=== PATIENT | female | born 1970 | race Caucasian/White ===

== ENCOUNTER → 2016-09-10 | Outpatient (CLI) | payer OTHER ==
--- NOTE | 2016-09-10 15:13 | DX ---
Left ankle - 3 views Indication: Recent injury. Pain. Technique: AP, mortise, and lateral views. Comparison: None Findings: A 0.8 x 0.40 mm cortical chip fracture is distracted off the dorsal anterior process of the talus on the lateral view. Minimal overlying soft tissue swelling. The distal tibia and fibula are i ntact. Ankle mortise is well preserved. Impression: 1. Small cortical chip fracture off the dorsal aspect of the anterior talus. 2. Intact mortise.
== END ==
LOC: BMCIMAGING 13:57
PROVIDERS: ATTEND Internal Medicine
DX: S92.192A Other fracture of left talus, initial encounter for closed fracture (principal)

== ENCOUNTER → 2016-10-10 | Outpatient (CLI) | payer OTHER | LOC: BMCIMAGING 09:21 | PROVIDERS: ATTEND Podiatrist Foot & Ankle Surgery | DX: S92.155A Nondisplaced avulsion fracture (chip fracture) of left talus, initial encounter for closed fracture (principal) ==

== ENCOUNTER → 2017-02-24 | Outpatient (CLI) | payer OTHER | LOC: FIMAGING 13:06 | PROVIDERS: ATTEND Obstetrics & Gynecology | DX: N92.0 Excessive and frequent menstruation with regular cycle (principal) ==

== ENCOUNTER → 2017-02-25 | Outpatient (CLI) | payer OTHER | LOC: FIMAGING 09:10 | PROVIDERS: ATTEND Internal Medicine | DX: Z12.31 Encounter for screening mammogram for malignant neoplasm of breast (principal); Z85.3 Personal history of malignant neoplasm of breast | CPT/HCPCS: G0202 ==

== ENCOUNTER → 2017-07-17 | Outpatient (CLI) | payer OTHER | LOC: BMCIMAGING 08:45 | PROVIDERS: ATTEND Physician Assistant | DX: M79.642 Pain in left hand (principal) ==

== ENCOUNTER → 2017-09-15 | Outpatient (CLI) | payer OTHER | LOC: BMCIMAGING 14:41 | PROVIDERS: ATTEND Family Medicine | DX: S82.091A Other fracture of right patella, initial encounter for closed fracture (principal); M25.532 Pain in left wrist ==

== ENCOUNTER → 2017-10-01 | Outpatient (CLI) | payer OTHER | LOC: BMCIMAGING 09:14 | PROVIDERS: ATTEND Orthopaedic Surgery Hand Surgery | DX: S82.091D Other fracture of right patella, subsequent encounter for closed fracture with routine healing (principal); M25.532 Pain in left wrist ==

== ENCOUNTER → 2017-10-16 | Outpatient (CLI) | payer OTHER | LOC: BMCIMAGING 10:16 | PROVIDERS: ATTEND Physician Assistant | DX: S89.91XD Unspecified injury of right lower leg, subsequent encounter (principal) ==

== ENCOUNTER → 2018-02-26 | Outpatient (CLI) | payer OTHER | LOC: FIMAGING 09:09 | PROVIDERS: ATTEND Internal Medicine | DX: Z12.31 Encounter for screening mammogram for malignant neoplasm of breast (principal) ==

== ENCOUNTER 2018-05-29 17:57 | Inpatient (IN) | payer OTHER ==
[2018-05-29] MEDS ORDERED: NS 1,000 ML IV ONE (18:37)
[2018-05-29] MEDS ORDERED: KETOROLAC 15 MG/1 ML SDV IVP ONE (18:37)
[2018-05-29] MEDS ORDERED: DIAZEPAM 5 MG/ML 1 ML SYR IVP ONE (18:37)
[2018-05-29] MEDS ORDERED: HYDROmorphONE/DILAUDID 2 MG/ML INJ IVP ONE (19:51)
[2018-05-29] MEDS ORDERED: HYDROmorphONE/DILAUDID 1 MG/ML INJ ONE (20:00)
[2018-05-29] MEDS ORDERED: IOPAMIDOL (ISOVUE-300) 100 ML BTL ONE (21:33)
[2018-05-29] MEDS ORDERED: AMPICILLIN/SULBACTAM 3 GM in NS 100 ML IV ONE (22:14)
[2018-05-29] MEDS ORDERED: DEXAMETHASONE 10 MG/ML VIAL IVP ONE (22:28)
[2018-05-29] MEDS ORDERED: ACETAMINOPHEN 325 MG TAB PO PRN (22:28)
[2018-05-29] MEDS ORDERED: ONDANSETRON DISINTEGRATING 4 MG TAB PO PRN (22:28)
[2018-05-29] MEDS ORDERED: ONDANSETRON 4 MG/2 ML VIAL IVP PRN (22:28)
[2018-05-29 22:32] LABS: PLATELET COUNT 383 10^3/uL (150-400)
--- NOTE | 2018-05-29 22:49 | EDPHY ---
H & P Stated Complaint: Increasing neck pain and stiffness since last weekend. Also has sore throat Time Seen by Provider: 05/29/18 18:25 HPI/ROS: Chief complaint: Neck stiffness and pain History of present illness: This is a 48-year-old female who presents to the emergency department for neck stiffness and pain. She reports the onset of symptoms over the last day. She is unable to move her neck in any direction secondary to pain. She does report she has been sick with mild cold symptoms including runny nose, nasal congestion and sore throat for the last few days. She is not sure if this is related as this feels like a mild illness. She does report associated fullness in her throat, some difficulty swallowing and difficulty opening the mouth. She also feels her voice is somewhat hoarse. No fevers, no headache, no cough, no chest congestion, no rash. Review of systems: A 10 point review of systems was obtained and other than described above was negative - Personal History Current Tetanus Diphtheria and Acellular Pertussis (TDAP): No - Medical/Surgical History Hx Asthma: No Hx Chronic Respiratory Disease: No Hx Diabetes: No Hx Cardiac Disease: No Hx Renal Disease: No Hx Cirrhosis: No Hx Alcoholism: No Hx HIV/AIDS: No Hx Splenectomy or Spleen Trauma: No Other PMH: Br CA, appy. - Social History Smoking Status: Never smoked - Physical Exam Exam: General Appearance: Alert, appears uncomfortable. Eyes: Pupils equal and round no pallor or injection. ENT, Mouth: Tympanic membranes, external auditory canals, external ears and surrounding soft tissue including over the mastoids are unremarkable. Nasopharynx is not injected. There is no rhinorrhea. Oropharynx is injected. There is no edema. There is no exudate. There is no asymmetry. The uvula is midline. No elevation of the tongue. There is mild hoarseness and trismus, no stridor. Respiratory: There are no retractions, lungs are clear to auscultation. Cardiovascular: Regular rate and rhythm. Neurological: Alert and oriented x4. Strength and sensation intact and symmetrical. Skin: Warm and dry, no rashes. Musculoskeletal: Patient is unable to move her neck secondary to pain. There is no tenderness on palpation of the neck. Extremities are symmetrical, full range of motion. Psychiatric: Patient is oriented X 3, there is no agitation. Constitutional: Initial Vital Signs Temperature (C) 36.6 C 05/29/18 17:58 Heart Rate 92 05/29/18 17:58 Respiratory Rate 16 05/29/18 17:58 Blood Pressure 128/84 H 05/29/18 17:58 O2 Sat (%) 100 05/29/18 17:58 O2 Delivery Mode Room Air Allergies/Adverse Reactions: No Known Allergies Allergy (Unverified 11/15/14 14:36) Home Medications: Medication Instructions Recorded Herbals/Supplements -Info Only 1 ea PO DAILY 01/02/15 Multivitamins [Tab-A-Myla] 1 each PO DAILY 01/02/15 Ascorbic Acid [Vitamin C] 500 mg PO DAILY 01/05/15 Herbals/Supplements -Info Only 1 ea PO DAILY 01/05/15 Pantoprazole Sodium [Protonix 40mg 40 mg PO HS #30 tab 03/19/18 (*)] Sucralfate [Carafate 1 GM (*)] 1 gm PO ACHS #28 tab 03/19/18 Medical Decision Making - Diagnostics Imaging Results: Imaging Impressions Neck CT 05/29/18 21:23 Impression: Retropharyngeal fluid extending from the level of C2 to C6, possibly representing early retropharyngeal abscess. Findings and recommendations discussed with NESTOR Gallegos at 1003 hour, 2017. Imaging: Discussed imaging studies w/ chute greaser Radiologist ED Course/Re-evaluation: Patient is discussed with my secondary supervising physician Dr. Price Diaz. Patient presents to the emergency department with inability to move her neck, some difficulty swallowing and talking and a few days of cold symptoms. Ultimately she appears to have an early retropharyngeal abscess. I have consulted with ENT, Dr. Inez Flores. She would like patient started on Unasyn and given Decadron. Patient needs to be on continuous pulse oximetry and needs to sleep with the head of the bed elevated. She will see patient in the morning. I have consulted with Dr. Federico Diana. He will admit for further evaluation and care. The plan has been discussed with the patient voiced understanding and agreement with it. Differential Diagnosis: Included but not limited to muscle spasms, abscess formation, meningitis - Data Points Laboratory Results: Laboratory Results 05/29/18 22:26 05/29/18 05/29/18 22:26 21:31 WBC 11.29 10^3/uL H 10^3/uL (3.80-9.50) RBC 4.35 10^6/uL 10^6/uL (4.18-5.33) Hgb 13.5 g/dL g/dL (12.6-16.3) POC Hgb 12.2 gm/dL L gm/dL (12.6-16.3) Hct 41.5 % % (38.0-47.0) POC Hct 36 % L % (38-47) MCV 95.4 fL fL (81.5-99.8) MCH 31.0 pg pg (27.9-34.1) MCHC 32.5 g/dL g/dL (32.4-36.7) RDW 12.4 % % (11.5-15.2) Plt Count 383 10^3/uL 10^3/uL (150-400) MPV 10.5 fL fL (8.7-11.7) Neut % (Auto) 81.9 % H % (39.3-74.2) Lymph % (Auto) 9.7 % L % (15.0-45.0) Brooks % (Auto) 7.7 % % (4.5-13.0) Eos % (Auto) 0.1 % L % (0.6-7.6) Baso % (Auto) 0.2 % L % (0.3-1.7) Nucleat RBC Rel Count 0.0 % % (0.0-0.2) Absolute Neuts (auto) 9.25 10^3/uL H 10^3/uL (1.70-6.50) Absolute Lymphs (auto) 1.09 10^3/uL 10^3/uL (1.00-3.00) Absolute Monos (auto) 0.87 10^3/uL H 10^3/uL (0.30-0.80) Absolute Eos (auto) 0.01 10^3/uL L 10^3/uL (0.03-0.40) Absolute Basos (auto) 0.02 10^3/uL 10^3/uL (0.02-0.10) Absolute Nucleated RBC 0.00 10^3/uL 10^3/uL (0-0.01) Immature Gran % 0.4 % % (0.0-1.1) Immature Gran # 0.05 10^3/uL 10^3/uL (0.00-0.10) POC Sodium 141 mEq/L mEq/L (135-145) POC Potassium 3.8 mEq/L mEq/L (3.3-5.0) POC Chloride 110 mEq/L mEq/L (97-110) POC BUN 7 mg/dL mg/dL (7-23) POC Creatinine 0.6 mg/dL mg/dL (0.6-1.0) POC Glucose 88 mg/dL mg/dL (70-100) Medications Given: Discontinued Medications Diazepam (Valium) 5 mg IVP EDNOW ONE Stop: 05/29/18 18:38 Last Admin: 05/29/18 18:57 Dose: 5 mg Hydromorphone HCl (Dilaudid) 0.5 mg IVP EDNOW ONE Stop: 05/29/18 19:52 Last Admin: 05/29/18 20:07 Dose: 0.5 mg Sodium Chloride (Ns) 1,000 mls @ 0 mls/hr IV EDNOW ONE; Wide Open PRN Reason: Protocol Stop: 05/29/18 18:38 Last Admin: 05/29/18 18:56 Dose: 1,000 mls Ampicillin Sodium/Sulbactam (Sodium 3 gm/ Sodium Chloride) 100 mls @ 200 mls/ hr IV EDNOW ONE PRN Reason: Protocol Stop: 05/29/18 22:43 Last Admin: 05/29/18 22:40 Dose: 100 mls Ketorolac Tromethamine (Toradol) 15 mg IVP EDNOW ONE Stop: 05/29/18 18:38 Last Admin: 05/29/18 18:57 Dose: 15 mg Point of Care Test Results: Chemistry 05/29/18 21:31 POC Sodium 141 mEq/L mEq/L (135-145) POC Potassium 3.8 mEq/L mEq/L (3.3-5.0) POC Chloride 110 mEq/L mEq/L (97-110) POC BUN 7 mg/dL mg/dL (7-23) POC Creatinine 0.6 mg/dL mg/dL (0.6-1.0) POC Glucose 88 mg/dL mg/dL (70-100) ISTAT H&H 05/29/18 21:31 POC Hgb 12.2 gm/dL L gm/dL (12.6-16.3) POC Hct 36 % L % (38-47) Departure - Departure Disposition: [facility] Inpatient Acute Clinical Impression: Retropharyngeal abscess Condition: Fair
[2018-05-29] MEDS ORDERED: DEXAMETHASONE 4 MG/ML VIAL IVP ONE (23:00)
--- NOTE | 2018-05-29 23:57 | PDGENHP ---
History and Physical - Chief Complaint Neck pain, difficulty swallowing - History of Present Illness 48 yo F w/ hx of breast CA presents with neck pain. Patient tells me she strained her neck while gardening about 5 days ago. Shortly after, she began to notice throat pain. It is unclear if these issues are related. Over the following few days her throat pain progressed to the point where she could not eat or drink. At that point she came to the ED for evaluation. Of note, her daughter has had a sore throat recently as well. She denies fevers to me at this point. In the ED her evaluation is notable for neck fullness and pharyngeal erythema. CT reveals retropharyngeal fluid possibly consistent with early abscess. ENT was consulted in the ED. She is being admitted for observation and management of possible retropharyngeal infection. Case discussed with ED physician Dr. Price Diaz, records reviewed in EMR. History Information - Allergies/Home Medication List Allergies/Adverse Reactions: No Known Allergies Allergy (Unverified 11/15/14 14:36) Home Medications: Herbals/Supplements -Info Only 1 ea PO DAILY 01/02/15 [Last Taken Unknown] Multivitamins [Tab-A-Myla] 1 each PO DAILY 01/02/15 [Last Taken Unknown] Ascorbic Acid [Vitamin C] 500 mg PO DAILY 01/05/15 [Last Taken Unknown] Herbals/Supplements -Info Only 1 ea PO DAILY 01/05/15 [Last Taken Unknown] I have personally reviewed and updated: family history, medical history - Past Medical History cancer - Surgical History Reports: appendectomy, cancer surgery - Family History Positive for: hypertension - Social History Smoking Status: Never smoked Review of Systems Review of Systems: ROS: 10pt was reviewed & negative except for what was stated in HPI & below Physical Exam Physical Exam: Temp Pulse Resp BP Pulse Ox 36.6 C 74 16 130/76 H 95 05/29/18 17:58 05/29/18 22:43 05/29/18 22:43 05/29/18 22:43 05/29/18 22:43 Constitutional: appears nourished, uncomfortable Eyes: PERRL, EOMI Ears, Nose, Mouth, Throat: moist mucous membranes, other (Pharyngeal erythema) Cardiovascular: regular rate and rhythym, no murmur, rub, or gallop Respiratory: no respiratory distress, clear to auscultation Gastrointestinal: normoactive bowel sounds, soft, non-tender abdomen Skin: warm, normal color Musculoskeletal: full muscle strength, pain with ROM (Neck) Neurologic: AAOx3, CN II-XII Intact Psychiatric: interacting appropriately, not anxious Lab Data & Imaging Review 05/29/18 22: WBC 11.29 10^3/uL (3.80-9.50) H 05/29/18: RBC 4.35 10^6/uL (4.18-5.33) 05/29/18 22: Hgb 13.5 g/dL (12.6-16.3) 05/29/18: POC Hgb 12.2 gm/dL (12.6-16.3) L 05/29/18 21: Hct 41.5 % (38.0-47.0) 05/29/18: POC Hct 36 % (38-47) L 05/29/18: MCV 95.4 fL (81.5-99.8) 05/29/18: MCH 31.0 pg (27.9-34.1) 05/29/18: MCHC 32.5 g/dL (32.4-36.7) 05/29/18: RDW 12.4 % (11.5-15.2) 05/29/18: Plt Count 383 10^3/uL (150-400) 05/29/18: MPV 10.5 fL (8.7-11.7) 05/29/18: Neut % (Auto) 81.9 % (39.3-74.2) H 05/29/18: Lymph % (Auto) 9.7 % (15.0-45.0) L 05/29/18: [place] % (Auto) 7.7 % (4.5-13.0) 05/29/18: Eos % (Auto) 0.1 % (0.6-7.6) L 05/29/18: Baso % (Auto) 0.2 % (0.3-1.7) L 05/29/18: Nucleat RBC Rel Count 0.0 % (0.0-0.2) 05/29/18 22: Absolute Neuts (auto) 9.25 10^3/uL (1.70-6.50) H 05/29/18 22: Absolute Lymphs (auto) 1.09 10^3/uL (1.00-3.00) 05/29/18 22: Absolute Monos (auto) 0.87 10^3/uL (0.30-0.80) H 05/29/18 22: Absolute Eos (auto) 0.01 10^3/uL (0.03-0.40) L 05/29/18 22: Absolute Basos (auto) 0.02 10^3/uL (0.02-0.10) 05/29/18: Absolute Nucleated RBC 0.00 10^3/uL (0-0.01) 05/29/18 22: Immature Gran % 0.4 % (0.0-1.1) 05/29/18: Immature Gran # 0.05 10^3/uL (0.00-0.10) 05/29/18 22:26 POC Sodium 141 mEq/L (135-145) 05/29/18 21:31 POC Potassium 3.8 mEq/L (3.3-5.0) 05/29/18 21:31 POC Chloride 110 mEq/L (97-110) 05/29/18 21:31 POC BUN 7 mg/dL (7-23) 05/29/18 21:31 POC Creatinine 0.6 mg/dL (0.6-1.0) 05/29/18 21: POC Glucose 88 mg/dL (70-100) 05/29/18 21:31 Imaging Review: Imaging Impressions Neck CT 05/29/18 21:23 Impression: Retropharyngeal fluid extending from the level of C2 to C6, possibly representing early retropharyngeal abscess. Findings and recommendations discussed with NESTOR Gallegos at 1003 hour, 2017. Assessment & Plan Assessment: 48 yo F w/ hx of breast CA presents with neck pain and found to have possible retropharyngeal abscess on imaging. Plan: 1. Dysphagia, neck pain - With CT revealing retropharyngeal fluid extending from the level of C2 to C6, possibly representing early retropharyngeal abscess. Patient has had progressive symptoms for about 4 days and has difficulty tolerating PO. - Admit for observation - Continuous pulse ox, maintain HOB>30 degrees - mIVF, pain control - Unasyn IV - Blood cultures ordered - ENT consulted, will see patient in the morning 2. Hx breast cancer - Treated with surgery and radiation, not currently on therapy for this. Diet - NPO, mIVF Code - Full Ppx - SCDs Dispo - Admit under observation status
[2018-05-30 00:11] LABS: PLATELET COUNT 360 10^3/uL (150-400)
[2018-05-30] MEDS ORDERED: CHLORHEXIDINE GLUCONATE 15 ML UDL ONE (00:23)
--- NOTE | 2018-05-30 00:32 | PDANEPAE ---
ANE Past Medical History - Cardiovascular History Hx Hypertension: No Hx Arrhythmias: No Hx Chest Pain: No Hx Coronary Artery / Peripheral Vascular Disease: No Hx CHF / Valvular Disease: No Hx Palpitations: No - Pulmonary History Hx COPD: No Hx Asthma/Reactive Airway Disease: No Hx Recent Upper Respiratory Infection: No Hx Oxygen in Use at Home: No Hx Sleep Apnea: No - Neurologic History Hx Cerebrovascular Accident: No Hx Seizures: No Hx Dementia: No - Endocrine History Hx Diabetes: No Hypothyroid: No Hyperthyroid: No Obesity: no - Renal History Hx Renal Disorders: No - Liver History Hx Hepatic Disorders: No - Neurological & Psychiatric Hx Hx Neurological and Psychiatric Disorders: No - Cancer History Hx Cancer: No Cancer History Comment: BREAST CA - Congenital Disorder History Hx Congenital Disorders: No - GI History Hx Gastrointestinal Disorders: No - Other Health History Other Health History: NEG - Chronic Pain History Chronic Pain: No - Surgical History Prior Surgeries: KNEE L X3. APPENDECTOMY ANE Review of Systems Review of Systems: ANE Patient History - Allergies Allergies/Adverse Reactions: No Known Allergies Allergy (Unverified 11/15/14 14:36) - Home Medications Home Medications: Herbals/Supplements -Info Only 1 ea PO DAILY 01/02/15 [Last Taken Unknown] Multivitamins [Tab-A-Myla] 1 each PO DAILY 01/02/15 [Last Taken Unknown] Ascorbic Acid [Vitamin C] 500 mg PO DAILY 01/05/15 [Last Taken Unknown] Herbals/Supplements -Info Only 1 ea PO DAILY 01/05/15 [Last Taken Unknown] - NPO status NPO Since - Liquids (Date): 05/30/18 NPO Since - Liquids (Time): 22:00 NPO Since - Solids (Date): 05/30/18 NPO Since - Solids (Time): 15:00 - Smoking Hx Smoking Status: Never smoked - Family Anes Hx Family Hx Anesthesia Complications: NEG ANE Labs/Vital Signs - Labs Result Diagrams: 05/30/18 00:00 05/30/18 00:00 - Vital Signs Blood Pressure: 132/64 Heart Rate: 78 Respiratory Rate: 12 O2 Sat (%): 94 Height: 175.26 cm Weight: 60.328 kg ANE Physical Exam - Airway Neck exam: decreased ROM Mallampati Score: Class 1 Mouth exam: normal dental/mouth exam, small mouth opening - Pulmonary Pulmonary: no respiratory distress - Cardiovascular Cardiovascular: regular rate and rhythym - ASA Status ASA Status: III, E ANE Anesthesia Plan Anesthesia Plan: general endotracheal anesthesia
[2018-05-30] MEDS ORDERED: fentaNYL 100 MCG/2 ML INJ ONE ×2 (00:39→01:46)
[2018-05-30] MEDS ORDERED: PROPOFOL 200 MG/20 ML VIAL ONE (00:40)
[2018-05-30] MEDS ORDERED: MIDAZOLAM 2 MG/2 ML VIAL ONE (00:50)
[2018-05-30] MEDS ORDERED: SUGAMMADEX SODIUM 200 MG/2 ML VIAL IVP ONE (01:14)
[2018-05-30] MEDS ORDERED: ONDANSETRON 4 MG/2 ML VIAL ONE (01:14)
[2018-05-30] MEDS ORDERED: ROCURONIUM 100 MG/10 ML VIAL ONE (01:15)
--- NOTE | 2018-05-30 01:24 | POSTOPPROG ---
Post Op Note Date of Operation: 05/30/18 Surgeon: Inez Flores Anesthesia: GET(General Endotracheal) Pre-op Diagnosis: Retropharyngeal abscess Post-op Diagnosis: same Procedure: I&D RPA Findings: sig tissue edema and redeness of post OP wall, serous fluid Inf/Abcess present in the surg proc area at time of surgery?: Yes Depth: Deep Incisional (Fascial) EBL: Minimal Complications: none apparent Specimen(s): culture taken
--- NOTE | 2018-05-30 01:28 | SOAPPROG ---
SOAP Progress Note Assessment/Plan: Assessment: POD 0 I&D RPA, COntinue IV Unasyn, HOB elevated and NPO until recheck tomorrow to see if improving. Call with any questions or concerns. [phone] Plan: 05/30/18 01:27 Objective: Vital Signs Temp Pulse Resp BP Pulse Ox 36.8 C 78 12 132/64 H 94 05/30/18 00:35 05/30/18 00:35 05/30/18 00:35 05/30/18 00:35 05/30/18 00:35 Laboratory Results 05/30/18 00:00 05/30/18 00:00 05/28/18 05/29/18 05/30/18 05:59 05:59 05:59 Intake Total 1000 Balance 1000 ICD10 Worksheet Patient Problems: Problems Problem Status Onset Retropharyngeal abscess Acute
[2018-05-30] MEDS ORDERED: fentaNYL 100 MCG/2 ML INJ IVP PRN (01:45)
[2018-05-30] MEDS ORDERED: PROMETHAZINE HCL 25 MG/ML INJ IVP PRN (01:45)
[2018-05-30] MEDS ORDERED: NALOXONE HCL 0.4 MG/ML INJ IVP PRN (01:45)
--- NOTE | 2018-05-30 01:45 | POSTANESTH ---
Post Anesthetic Evaluation Cardiovascular Status: Normal, Stable Respiratory Status: Normal, Stable Level of Consciousness/Mental Status: Can Participate in Eval Pain Control: Adequate, Prn Tx Ordered Nausea/Vomiting Control: Adequate, Prn Tx Ordered Complications Possibly Related to Anesthesia: None Noted
[2018-05-30] MEDS: D5W 1/2 NS 1,000 ML IV SCH (02:38)
[2018-05-30] MEDS: AMPICILLIN/SULBACTAM 3 GM in NS 100 ML IV SCH ×4 (04:38→22:10)
--- NOTE | 2018-05-30 07:24 | GOP ---
DATE OF OPERATION: 05/29/2018 SURGEON: Inez Flores MD ANESTHESIA: General. PREOPERATIVE DIAGNOSIS: Retropharyngeal abscess. POSTOPERATIVE DIAGNOSIS: Retropharyngeal abscess. PROCEDURE PERFORMED: Incision and drainage of retropharyngeal abscess. FINDINGS: The patient is found to have some fullness and redness of the posterior pharyngeal wall, starting at the area at the base of tongue level and extending down to the post cricoid region. A 1.5 cm incision was made in the midline of the posterior pharyngeal wall and a large pocket was found and this was probed. A culture was taken. COMPLICATIONS: None. ESTIMATED BLOOD LOSS: Minimal. DESCRIPTION OF PROCEDURE: The patient was first seen in the preoperative area where informed consent was obtained. After evaluating her in the ER, she was brought to the OR and anesthesia sedated and intubated her. A shoulder roll was placed. She was prepped and draped in normal fashion. A universal time out protocol was performed. A Armin-Gabe mouth gag was placed in the oral cavity and then retracted and suspended, giving good visualization of the oropharynx. I was able to palpate and visualize some significant redness and swelling of the posterior pharyngeal wall as well as fullness just behind the base of tongue. A 1.5 cm incision was made with a 15 blade through the mucosa and then a tonsil was used to gently probe in this area. There was a significant amount of tissue edema throughout and some serous fluid culture was taken and sent for throat culture. I gently used the tonsil clamp to probe laterally on either side as well as inferiorly, extending this down another 2 or 3 cm from the incision. Once this was done, the tonsil clamp was removed. The oral cavity and oropharynx were irrigated out copiously with normal saline and suctioned clear. All instruments were removed. The patient was turned back over to Anesthesia where she was awakened, extubated, and taken to PACU in stable condition. There were no complications, and she tolerated the procedure well. /[id number]/MODL MTDD
--- NOTE | 2018-05-30 07:34 | GCON ---
DATE OF CONSULTATION: 05/29/2018 CHIEF COMPLAINT: Neck pain. HISTORY OF PRESENT ILLNESS: This is a pleasant 48-year-old woman who has a history of some neck pain for about a week. She related this to some gardening and hurting her shoulder. She does state that she has been fighting off a cold that her daughter had for about the same length of time. She denies any significant rhinorrhea, but does complain of postnasal drip. She also complains that the pain in the neck got significantly bad over the past 48 hours. She went to see her chiropractor yesterday who felt like there was something else going on, so she saw her PCP today and was sent here. She complains of difficulty moving her neck up, down or laterally. She does complain of odynophagia as well as difficulty swallowing in general. She says she has had minimal po intake over the past 5 days or so because of this. She does not have any overt shortness of breath, she complains of a sore throat. She also feels like she has some mild trismus. She denies fevers, headaches, cough, chest congestion, or rash. She otherwise is healthy. PAST MEDICAL HISTORY: Significant for previous appendectomy and breast cancer. She is a nonsmoker. REVIEW OF SYSTEMS: Negative except for the above. PHYSICAL EXAM: GENERAL: She is awake, alert, in no apparent distress. Voice is clear. She does have obvious difficulty with neck movement and pain with this. ITALS: Stable, she is on room air 94%. HEENT: Exam of the ears are clear. No middle ear effusion. The nasal cavity shows some mild mucoid discharge. Oral cavity and oropharynx shows tongue is mobile and midline. Palate elevates symmetrically. Oropharynx is clear. NECK: Tender, but there is no significant lymphadenopathy or cellulitis or crepitus. Limited ROM marine chronometer assembler 2-12 grossly intact A flexible fiberoptic laryngoscopy was performed after verbal informed consent was obtained and about 1 cc total 4% lidocaine and Afrin was sprayed into the nasal cavity on both sides. Once this had sufficient time to act, a scope was placed through the right naris, passed through the right nasal cavity. Nasopharynx was clear. Just past the palate she does have some increasing erythema and fullness of the posterior pharyngeal wall. This extends all the way back to the post cricoid region. She has no significant edema of the larynx. Oropharynx is symmetric and there is no significant pooling. The scope was removed and she tolerated this well. IMAGING: CT scan was reviewed, and showed a retropharyngeal abscess extending from level C2-C6 without significant lateral extension. Her white count is 11.2. ASSESSMENT AND PLAN: This is a patient with a retropharyngeal abscess. She has significant neck pain, some odynophagia and some dysphagia. She has a retropharyngeal fluid collection on CT scan, as well as significant inflammation , swelling, redness of the posterior pharyngeal wall on flexible fiberoptic laryngoscopy. She has not been on any antibiotics for this previously, although secondary to her findings as well as the CT scan and the pain and swelling that she has, I think that she needs to be taken to the OR somewhat emergently for drainage of this retropharyngeal abscess. I do not necessarily think doing IV antibiotics prior is going to help and I think it could potentially allow extension of this fluid collection and cause more problems. I did discuss this with her and she agrees and understands. We will plan to take her to the OR now and all her questions were answered. /[id number]/MODL MTDD
--- NOTE | 2018-05-30 10:07 | ASMTCMCOM ---
CM Note CM Note Notes: Pt presented the ED w/neck pain, stiffness, decreased ROM and dysphagia for [address] scan showed retropharyngeal fluid from C2-C6, possible early abscess. ENT consulted in the ED. Pt taken emergently to OR for I&D; culture pending. Pt normally is independent and active. Pt has a daughter and other family/friends locally. Exact DC needs TBD but anticipate pt to DC home w/family vs. home w/HHC (might need IV abx?). Pt's PCP is Dr Trinidad Holden. CM to follow. Date Signed: 05/30/2018 10:06 AM Electronically Signed By:Joslyn Max RN
--- NOTE | 2018-05-30 10:30 | SOAPPROG ---
SOAP Progress Note Assessment/Plan: Assessment: POD 1 I&D RPA, Improved dysphagia, neck mobility. Denies SOB. COntinue IV Unasyn, HOB elevated. Would keep NPO except for meds until tonight. Can start clear liquids around 8 pm. Call with any questions or concerns, or worsening. [phone] Plan: 05/30/18 01:27 05/30/18 10:27 Subjective: Doing better. Less dysphagia, swallowing secretions better. able to move neck more. Has more sore throat. Objective: AFVSS RA OC/OP clear, top of incision seen in post OP wall no sig d/c neck without inc pain and no crepitus or LAD Neck mobility still restricted but better Vital Signs Temp Pulse Resp BP Pulse Ox 36.5 C 81 16 117/62 95 05/30/18 07:14 05/30/18 07:14 05/30/18 07:14 05/30/18 07:14 05/30/18 07:14 Microbiology 05/30/18 01:10 Gram Stain - Final Other - Eswab Laboratory Results 05/30/18 00:00 05/30/18 00:00 05/29/18 05/30/18 05/31/18 05:59 05:59 05:59 Intake Total 1476 Balance 1476 ICD10 Worksheet Patient Problems: Problems Problem Status Onset Retropharyngeal abscess Acute
[2018-05-30] MEDS ORDERED: ACETAMINOPHEN 650 MG/20.3 ML UDCUP PO PRN (12:30)
--- NOTE | 2018-05-30 15:34 | HOSPPROG ---
Hospitalist Progress Note Assessment/Plan: 48 yo F w/ hx of breast CA presents with neck pain and found to have possible retropharyngeal abscess on imaging. Plan: 1. Dysphagia, neck pain - With CT revealing retropharyngeal fluid extending from the level of C2 to C6, possibly representing early retropharyngeal abscess. Patient has had progressive symptoms for about 4 days and has difficulty tolerating PO. - Continuous pulse ox, maintain HOB>30 degrees - mIVF, pain control - Unasyn IV - Blood and fluid cultures pending - ENT consulted, s/p I&D last night, recommend starting CLD tonight 2. Hx breast cancer - Treated with surgery and radiation, not currently on therapy for this. Diet - NPO, mIVF Code - Full Ppx - SCDs Dispo - Pending clinical course Subjective: Patient reports improved neck mobility, however experiencing throat pain Objective: Vital Signs Temp Pulse Resp BP Pulse Ox 36.7 C 85 18 106/70 95 05/30/18 11:56 05/30/18 11:56 05/30/18 11:56 05/30/18 11:56 05/30/18 11:56 Microbiology 05/30/18 01:10 Gram Stain - Final Other - Eswab Laboratory Results 05/30/18 00:00 05/30/18 00:00 05/29/18 05/30/18 05/31/18 05:59 05:59 05:59 Intake Total 1476 Balance 1476 - Physical Exam Constitutional: no apparent distress Eyes: PERRL Ears, Nose, Mouth, Throat: moist mucous membranes Cardiovascular: regular rate and rhythym Respiratory: no respiratory distress Gastrointestinal: soft, non-tender abdomen Genitourinary: No perez in urethra Skin: normal color Neurologic: AAOx3 Psychiatric: interacting appropriately ICD10 Worksheet Patient Problems: Problems Problem Status Onset Retropharyngeal abscess Acute
[2018-05-31] MEDS: AMPICILLIN/SULBACTAM 3 GM in NS 100 ML IV SCH ×4 (04:20→23:15)
--- NOTE | 2018-05-31 07:44 | PDMN ---
Medical Necessity Medical necessity: Change to inpt as of 05/30/18 @ 1705. Pt meet inpt criteria per MD order and Head and Neck Surgery GRG. 48 y/o admitted w/dysphagia and neck pain found to have retropharyngeal abscess requiring ENT consult and surgical I &D, NPO, ongoing pain requiring IV pain meds, IV fluids, IV antibiotics. Blood and fluid cultures pending, est LOS>2MN for management of above.
[2018-05-31] MEDS: D5W 1/2 NS 1,000 ML IV SCH ×2 (08:01→18:25)
[2018-05-31] MEDS ORDERED: CEPACOL LOZENGE PO PRN (09:30)
[2018-05-31] MEDS ORDERED: BENZOCAINE UNIT DOSE SPRAY HURRICAINE MM PRN (09:32)
[2018-05-31] MEDS: LIDOCAINE 4%/MENTHOL 1% PATCH TD SCH (10:11)
--- NOTE | 2018-05-31 12:35 | SOAPPROG ---
SOAP Progress Note Assessment/Plan: Assessment: POD 2 I&D RPA, swallowing much improved this morning. States pain sig better today as well. Her neck mobility has continued to improve. Denies SOB. She does have some anterior neck pain which is new on the L. I don't feel any swelling, LAD and there's no cellulitis. WBC down. I tend to think this is more related to neck tension though want to watch closely to make sure doesn't have recurrence or spread of infection. I don't think that's what's happening now. Would continue IV Unasyn, HOB elevated. Would continue clear liquids for now, [facility] Anticipate if continues to improve can d/c home with oral abx tomorrow. Call with any questions or concerns, or worsening. [phone] Plan: 05/30/18 01:27 05/30/18 10:27 05/31/18 12:32 Subjective: Doing better overall. Swallowing and pain both greatly improved. Neck mobility continues to get better. Has some mild pain over L neck, feels like a bruise per her. gram stain showed G - rods and G+ cocci. Blood cultures negative. Objective: AFVSS RA almost full neck ROM laterally, still mildly limited up and down though significantly better mild neck TTP lon on L over SCM. I don't feel any LAD, swelling and no cellulitis Oc/OP clear, tip of incision visualized in post OP Vital Signs Temp Pulse Resp BP Pulse Ox 36.7 C 91 16 98/69 L 99 05/31/18 08:00 05/31/18 08:00 05/31/18 08:00 05/31/18 08:00 05/31/18 08:00 05/30/18 05/31/18 06/01/18 05:59 05:59 05:59 Intake Total 3076 105 Balance 3076 105 ICD10 Worksheet Patient Problems: Problems Problem Status Onset Retropharyngeal abscess Acute
--- NOTE | 2018-05-31 12:40 | HOSPPROG ---
Hospitalist Progress Note Assessment/Plan: 48 yo F w/ hx of breast CA presents with neck pain and found to have possible retropharyngeal abscess on imaging. Plan: 1. Dysphagia, neck pain - With CT revealing retropharyngeal fluid extending from the level of C2 to C6, possibly representing early retropharyngeal abscess. Patient has had progressive symptoms for about 4 days and has difficulty tolerating PO. - Continuous pulse ox, maintain HOB>30 degrees - mIVF, pain control - Unasyn IV, likely transition to PO abx tomorrow - Blood and fluid cultures pending, NGTD - ENT following, s/p I&D on 05/29, recommend advancing to FLD tonight 2. Hx breast cancer - Treated with surgery and radiation, not currently on therapy for this. Diet - NPO, mIVF Code - Full Ppx - SCDs Dispo - Pending clinical course, likely d/c tomorrow Subjective: Patient reports improving neck pain Objective: Vital Signs Temp Pulse Resp BP Pulse Ox 36.7 C 91 16 98/69 L 99 05/31/18 08:00 05/31/18 08:00 05/31/18 08:00 05/31/18 08:00 05/31/18 08:00 05/30/18 05/31/18 06/01/18 05:59 05:59 05:59 Intake Total 3076 105 Balance 3076 105 - Physical Exam Constitutional: no apparent distress Eyes: PERRL Ears, Nose, Mouth, Throat: moist mucous membranes Cardiovascular: regular rate and rhythym Respiratory: no respiratory distress Skin: normal color Neurologic: AAOx3 Psychiatric: interacting appropriately ICD10 Worksheet Patient Problems: Problems Problem Status Onset Retropharyngeal abscess Acute
[2018-05-31] MEDS ORDERED: PATCH REMOVAL 1 EA PATCH TD SCH (21:00)
[2018-06-01] MEDS: AMPICILLIN/SULBACTAM 3 GM in NS 100 ML IV SCH ×2 (04:59→09:31)
[2018-06-01] MEDS: LIDOCAINE 4%/MENTHOL 1% PATCH TD SCH (08:23)
--- NOTE | 2018-06-01 09:00 | SOAPPROG ---
SOAP Progress Note Assessment/Plan: Assessment: POD 3 I&D RPA, swallowing much improved this morning. States pain sig better today as well. Her neck mobility has continued to improve. Denies SOB. She does have some anterior neck pain B. No cellulitis, no swelling. Mild B LAD. I doubt this is spread of infection though want to get CBC and U/S neck to eval today. If this is normal, she can d/c home on Augmentin x 2 weeks and see me later this week in clinic. Call with questions [phone] Plan: 05/30/18 01:27 05/30/18 10:27 05/31/18 12:32 06/01/18 08:57 Subjective: Doing well, ST better. ROM almost normal. Still with some anterior neck pain. Not worse but not really better Objective: AFVSS RA post OP clear, no edema neck without sig swelling, redness or cellulitis mild TTP over anterior neck B ROM good in all planes Vital Signs Temp Pulse Resp BP Pulse Ox 36.6 C 71 16 117/69 95 06/01/18 08:00 06/01/18 08:00 06/01/18 08:00 06/01/18 08:00 06/01/18 08:00 Laboratory Results 05/31/18 13:36 05/31/18 06/01/18 06/02/18 05:59 05:59 05:59 Intake Total 3076 3470 Balance 3076 3470 ICD10 Worksheet Patient Problems: Problems Problem Status Onset Retropharyngeal abscess Acute
[2018-06-01 11:51] VITALS: BP 120/70
--- NOTE | 2018-06-01 12:36 | ASMTCMCOM ---
CM Note CM Note Notes: 06/01/2018 Case Management Note Discussed pt during rounds. ENT note indicates pt will d/c on oral antibiotics. There are no other identified case management d/c needs. There are no therapy evals ordered at this time. Case Management d/c poc: home independent with follow up as directed. Case Management available if needs change. Date Signed: 06/01/2018 12:36 PM Electronically Signed By:Susan Perez RN
--- NOTE | 2018-06-01 13:30 | GDS ---
DIAGNOSIS: Retropharyngeal abscess, status post incision and drainage. PROCEDURES DONE: 1. CT scan of the neck and soft tissue showing retropharyngeal fluid extending from the level of C2 to C6. 2. Incision and drainage of retroperitoneal abscess. 3. Head and neck ultrasound. No obvious abscess noted in the area of interest. CONSULTATION: Inez Flores MD, ENT HOSPITAL COURSE: The patient is a 48-year-old healthy woman who came in with neck pain. She straine d her neck while gardening about 5 days ago. She began to notice throat pain. However, over the fol lowing few days prior to admission, her throat pain progressed to the point where she could not eat o r drink. She came to the emergency department, and a CT scan was done with the above findings. Dr. Flores was consulted and took her to the OR on the for an I and D. She has recovered nicely si nce then and has been on IV antibiotics. She started to complain of some mild left-sided throat pain , and an ultrasound was done prior to discharge, which showed no further abscess. She will be transi tioned to oral antibiotics and follow up with ENT. CONDITION ON DISCHARGE: Good. She has been afebrile. Her pain is much improved, and she is able to eat a regular diet. DISCHARGE MEDICATIONS: Augmentin twice daily. Please see discharge medication form. FOLLOWUP: With Dr. Flores this week. Total time spent with patient on day of discharge in coordination of care is 35 minutes. /[id number]/MODL
--- NOTE | 2018-06-01 14:13 | ASMTLACE ---
LACE Length of stay for Answers: 1 day current admission Acuity / Level of Answers: No Care: Did the patient have an inpatient admission? Comorbidities - select Answers: Other Notes: Hx of breast cancer all that apply # of Emergency department Answers: 3-4 visits in the last 6 months Score: 5 Date Signed: 06/01/2018 02:12 PM Electronically Signed By:Susan Perez RN
--- NOTE | 2018-06-01 14:20 | ASDISCHSUM ---
Discharge Information Plan Status:Home with No Needs Medically Cleared to Leave:06/01/2018 Discharge Date:06/01/2018 CM D/C Disposition:Home, Routine, Self-Care ADT D/C Disposition:Home, Routine, Self-Care Projected Discharge Date:06/01/2018 Transportation at D/C:Family Discharge Delay Reason: Follow-Up Date:06/01/2018 Discharge Slot: Final Diagnosis: Placement Information Patient Contact Information Contact Name:HARRISON Relationship:Mother [address] Home Phone: City:[place] Alternate Phone: [facility]/Zip Code:[place] [address] Email: Financial Information Financial Class:BC Primary Plan Desc:[facility] [facility] Primary Plan Number:[id number] Secondary Plan Desc: Secondary Plan Number: Assessment Information [facility] CM Progress Note CM Note CM Note Notes: Pt presented the ED w/neck pain, stiffness, decreased ROM and dysphagia for [address] scan showed retropharyngeal fluid from C2-C6, possible early abscess. ENT consulted in the ED. Pt taken emergently to OR for I&D; culture pending. Pt normally is independent and active. Pt has a daughter and other family/friends locally. Exact DC needs TBD but anticipate pt to DC home w/family vs. home w/HHC (might need IV abx?). Pt's PCP is Dr Trinidad Holden. CM to follow. Date Signed: 05/30/2018 10:06 AM Electronically Signed By:Joslyn Max RN LACE LACE Length of stay for Answers: 1 day current admission Acuity / Level of Answers: No Care: Did the patient have an inpatient admission? Comorbidities - select Answers: Other Notes: Hx of breast cancer all that apply # of Emergency department Answers: 3-4 visits in the last 6 months Score: 5 Date Signed: 06/01/2018 02:12 PM Electronically Signed By:Susan Perez RN [facility] CM Progress Note CM Note CM Note Notes: 06/01/2018 Case Management Note Discussed pt during rounds. ENT note indicates pt will d/c on oral antibiotics. There are no other identified case management d/c needs. There are no therapy evals ordered at this time. Case Management d/c poc: home independent with follow up as directed. Case Management available if needs change. Date Signed: 06/01/2018 12:36 PM Electronically Signed By:Susan Perez RN Case Management Discharge Plan Note Case Management Discharge Discharge Order Complete? Answers: Yes Patient to Obtain Answers: Independently Medications Transportation Arranged Answers: Family/Friends Discharge Comments Notes: Pt discharging home with follow up as directed. Date Signed: 06/01/2018 02:19 PM Electronically Signed By:Susan Perez RN Intervention Information
== END 2018-06-01 14:51 | disposition home or self-care (01) | DRG 153 ==
LOC: F2W 05-30 02:14 → OBSVTOIN 05-30 17:05
PROVIDERS: ADMIT Student in an Organized Health Care Education/Training Program; ATTEND Student in an Organized Health Care Education/Training Program
PROC: 0CJS8ZZ Inspection of Larynx, Via Natural or Artificial Opening Endoscopic (ICD-10-PCS; 2018-05-30)
PROC: 0C9M0ZX Drainage of Pharynx, Open Approach, Diagnostic (ICD-10-PCS; principal; 2018-05-30 00:45)
DX: J39.0 Retropharyngeal and parapharyngeal abscess (principal); Z85.3 Personal history of malignant neoplasm of breast; Z92.3 Personal history of irradiation
CPT/HCPCS: 82435-PO; 82565-PO; 82947-PO; 84132-PO; 84295-PO; 84520-PO; 85014-PO; 96374; G0378; J0295; J1100; J1170; J1885; J2250; J2270; J2405; J2704; J3010; J3360; Q9967